=== PATIENT | female | born 1990 | race Caucasian/White ===

== ENCOUNTER 2022-05-20 16:30 | Outpatient (RCR) | payer BC, SELFPAY | END 2022-05-24 16:45 | disposition home or self-care (01) | LOC: PT.CARL 16:30 | PROVIDERS: Visit Provider Nurse Practitioner Acute Care | DX: S82.301D Unspecified fracture of lower end of right tibia, subsequent encounter for closed fracture with routine healing (principal) | CPT/HCPCS: 97010; 97014; 97035; 97110; 97112; 97116; 97140; 97163; 97164; 97530; G0283 ==